=== PATIENT | female | born 1960 | race African-American/Black ===

== ENCOUNTER 2017-01-23 11:50 | Inpatient (IN) | payer OTHER ==
[~2017-01-23] VITALS: Ht 157.5 cm; Wt 104.3 kg
[~2017-01-23 11:50] MED LIST: ATIVAN; K-DUR PO; LASIX PO; LISINOPRIL PO
[2017-01-23] MEDS ORDERED: ALBUTEROL (0.083%) 2.5MG/3ML NEB HHN STA (11:57)
[2017-01-23] MEDS ORDERED: NITROGLYCERIN 0.4MG TABLET SL SL PRN (12:00)
[2017-01-23] MEDS ORDERED: ASPIRIN 81MG TABLET PO ONE (12:00)
[2017-01-23] MEDS ORDERED: FUROSEMIDE 40MG/4ML VIAL IV ONE (12:00)
[2017-01-23 12:27] LABS: BASOPHILS % 0.8 % (0.0-2.0); EOSINOPHILS % 2.4 % (0.0-5.0); HEMATOCRIT. 42.4 % (36.0-48.0); HEMOGLOBIN. 13.8 g/dL (12.0-16.0); LYMPHOCYTES % 37.3 % (20.0-50.0); MEAN CORPUSCULAR HEMOGLOBIN 25.6 pg (28.0-32.0); MEAN CORPUSCULAR VOLUME 78.9 fL (81.0-99.0); MEAN PLATELET VOLUME 8.7 fl (7.4-10.4); MONOCYTES % 5.9 % (2.0-8.0); NEUTROPHILS % 53.6 % (40.0-76.0); PLATELET 281 x1000/uL (130-400); RED BLOOD CELL COUNT 5.37 mill/uL (4.2-5.4); RED CELL DISTRIBUTION WIDTH 16.3 % (11.6-14.6)
[2017-01-23 12:35] LABS: PROTHROMBIN TIME 10.3 sec (9.4-11.6)
[2017-01-23 12:44] LABS: CARBON DIOXIDE 28 mEq/L (21-32); CHLORIDE 108 mEq/L (98-107); TROPONIN I < 0.02 ng/mL (0.00-0.04)
[2017-01-23] MEDS ORDERED: LORAZEPAM 2MG/ML CPJ IV ONE (12:45)
[2017-01-23 16:30] VITALS: BP 103/75
[2017-01-23 17:00] VITALS: BP 103/75
[2017-01-23] MEDS ORDERED: IPRATROPIUM/ALBUTEROL 0.5-3(2.5)MG/3ML NEB HHN PRN (17:15)
[2017-01-23 20:00] VITALS: BP 170/66
[2017-01-23] MEDS: FUROSEMIDE 20MG TABLET PO SCH (20:44)
[2017-01-23] MEDS: CARVEDILOL 3.125 MG TABLET PO SCH (20:45)
[2017-01-23] MEDS: LORAZEPAM 2MG/ML CPJ IV PRN (20:58)
[2017-01-24 04:00] VITALS: BP 145/60
[2017-01-24 08:00] VITALS: BP 123/69
[2017-01-24] MEDS: CARVEDILOL 3.125 MG TABLET PO SCH (08:33)
[2017-01-24] MEDS: FUROSEMIDE 20MG TABLET PO SCH (08:33)
[2017-01-24] MEDS: LORAZEPAM 2MG/ML CPJ IV PRN (08:34)
[2017-01-24] MEDS ORDERED: LISINOPRIL 2.5MG TABLET PO SCH (09:00)
[2017-01-24] MEDS ORDERED: ASPIRIN 325MG EC TABLET PO SCH (09:00)
[2017-01-24] MEDS ORDERED: ALPRAZOLAM 0.5 MG TABLET PO SCH (10:00)
[2017-01-24] MEDS ORDERED: DEXTROSE 50% WATER 50ML SYRINGE IV PRN (10:00)
[2017-01-24 10:57] LABS: HEMATOCRIT 39.9 % (36.0-48.0); MEAN CORPUSCULAR HEMOGLOBIN 25.7 pg (28.0-32.0); MEAN CORPUSCULAR VOLUME 78.6 fL (81.0-99.0); PLATELET 260 x1000/uL (130-400); RED BLOOD CELL COUNT 5.07 mill/uL (4.2-5.4); RED CELL DISTRIBUTION WIDTH 16.2 % (11.6-14.6)
[2017-01-24] MEDS ORDERED: NICOTINE 14MG PATCH TD SCH (11:00)
[2017-01-24 11:24] LABS: CARBON DIOXIDE 28 mEq/L (21-32); CHLORIDE 105 mEq/L (98-107)
[2017-01-24] MEDS: BLOOD SUGAR DIAGNOSTIC STRIP TEST SCH ×2 (11:58→17:34)
[2017-01-24] MEDS: INSULIN LISPRO 100 UNITS/ML SUBCUT SCH ×2 (11:58→17:15)
[2017-01-24 12:00] VITALS: BP 187/94
[2017-01-24] MEDS ORDERED: AZITHROMYCIN 500 MG in DEXT 5% WATER 250 ML IV SCH (12:00)
[2017-01-24 14:49] LABS: CLARITY URINE CLEAR (CLEAR); COLOR URINE YELLOW (YELLOW); GLUCOSE URINE NEGATIVE (NEGATIVE); KETONES URINE NEGATIVE (NEGATIVE); LEUKOCYTE ESTERASE URINE NEGATIVE (NEGATIVE); NITRITE URINE POSITIVE (NEGATIVE); OCCULT BLOOD URINE NEGATIVE (NEGATIVE); PH URINE 7.5 (4.5-8.0); PROTEIN URINE NEGATIVE (NEGATIVE); SPECIFIC GRAVITY URINE 1.011 (1.005-1.030); UROBILINOGEN URINE 0.2 E.U./dL (0.2-1.0)
[2017-01-24 15:22] LABS: *AMPHETAMINES SCREEN URINE NEGATIVE (NEGATIVE); *BARBITURATES SCREEN URINE NEGATIVE (NEGATIVE); *BENZODIAZEPINES SCREEN URINE NEGATIVE (NEGATIVE); *COCAINE SCREEN URINE PRESUMTIVE POSITIVE (NEGATIVE); CANNABINOID URINE SCREEN NEGATIVE (NEGATIVE); METHADONE URINE SCREEN NEGATIVE (NEGATIVE); OPIATES URINE SCREEN NEGATIVE (NEGATIVE); PHENCYCLIDINE URINE SCREEN NEGATIVE (NEGATIVE)
[2017-01-24 16:00] VITALS: BP 180/96
[2017-01-24] MEDS ORDERED: FUROSEMIDE 20MG TABLET PO SCH (21:00)
== END 2017-01-24 18:30 | disposition left against medical advice (07) | DRG 133 ==
LOC: ER 11:50 → 5WST 11:51 → ENRESERV 15:56 → CANRESERV 15:56
PROVIDERS: ADMIT Internal Medicine; ATTEND Internal Medicine
DX: J96.00 Acute respiratory failure, unspecified whether with hypoxia or hypercapnia (principal); I50.31 Acute diastolic (congestive) heart failure; J44.1 Chronic obstructive pulmonary disease with (acute) exacerbation; Z68.41 Body mass index [BMI] 40.0-44.9, adult; I11.0 Hypertensive heart disease with heart failure; E11.9 Type 2 diabetes mellitus without complications; E66.01 Morbid (severe) obesity due to excess calories; F17.210 Nicotine dependence, cigarettes, uncomplicated; F41.9 Anxiety disorder, unspecified; Z53.21 Procedure and treatment not carried out due to patient leaving prior to being seen by health care provider; H54.8 Legal blindness, as defined in USA; Z82.49 Family history of ischemic heart disease and other diseases of the circulatory system
CPT/HCPCS: 36415; 71010; 72100; 74000; 80048; 80053; 80305; 81001; 82962; 83036; 83880; 84484; 85025; 85027; 85610; 93005; 93306; 93970; 94640; 99285; J0456; J2060; J7030; J7050; J7060; J7611

== ENCOUNTER 2017-08-09 16:49 | Emergency (ER) | payer OTHER ==
[~2017-08-09] VITALS: Ht 170.2 cm; Wt 95.0 kg
[~2017-08-09 16:49] MED LIST changes: +AMLO10TA80 PO
[2017-08-09 16:56] VITALS: BP 163/85
[2017-08-09 17:55] LABS: BASOPHILS % 0.8 % (0.0-2.0); EOSINOPHILS % 2.6 % (0.0-5.0); HEMATOCRIT. 38.1 % (36.0-48.0); HEMOGLOBIN. 12.3 g/dL (12.0-16.0); LYMPHOCYTES % 37.5 % (20.0-50.0); MEAN CORPUSCULAR HEMOGLOBIN 25.4 pg (28.0-32.0); MEAN CORPUSCULAR VOLUME 78.5 fL (81.0-99.0); MEAN PLATELET VOLUME 8.4 fl (7.4-10.4); MONOCYTES % 7.7 % (2.0-8.0); NEUTROPHILS % 51.4 % (40.0-76.0); PLATELET 275 x1000/uL (130-400); RED BLOOD CELL COUNT 4.86 mill/uL (4.2-5.4)
[2017-08-09 18:00] LABS: CHLORIDE 109 mEq/L (98-107)
== END 2017-08-09 19:00 | disposition left against medical advice (07) ==
LOC: ER 17:03
DX: R07.2 Precordial pain (principal); F14.10 Cocaine abuse, uncomplicated; J45.909 Unspecified asthma, uncomplicated; I11.0 Hypertensive heart disease with heart failure; I50.9 Heart failure, unspecified
CPT/HCPCS: 36415; 71045; 80048; 83880; 84484; 85025; 85610; 93005; 99285

== ENCOUNTER 2018-05-15 05:55 | Emergency (ER) | payer OTHER ==
[~2018-05-15] VITALS: Ht 157.5 cm; Wt 105.0 kg
[2018-05-15] MEDS ORDERED: ACETAMINOPHEN 325MG TABLET PO ONE (06:45)
[2018-05-15] MEDS ORDERED: LORAZEPAM 1MG TABLET PO ONE (06:45)
[2018-05-15] MEDS ORDERED: FLUORESCEIN SODIUM 1MG/STRIP OP ONE (07:00)
[2018-05-15] MEDS ORDERED: TETRACAINE 0.5% OPHTH DROPS 4ML OP ONE (07:00)
[2018-05-15 09:23] VITALS: BP 137/87
== END 2018-05-15 10:06 | disposition home or self-care (01) ==
LOC: ER 05:55
DX: S05.02XD Injury of conjunctiva and corneal abrasion without foreign body, left eye, subsequent encounter (principal); S05.01XD Injury of conjunctiva and corneal abrasion without foreign body, right eye, subsequent encounter; H57.13 Ocular pain, bilateral; J45.909 Unspecified asthma, uncomplicated; I11.0 Hypertensive heart disease with heart failure; I50.9 Heart failure, unspecified; Z79.899 Other long term (current) drug therapy; X58.XXXD Exposure to other specified factors, subsequent encounter
CPT/HCPCS: 99284

== ENCOUNTER 2018-07-11 09:35 | Emergency (ER) | payer MEDICARE, OTHER ==
[~2018-07-11] VITALS: Ht 162.6 cm; Wt 62.0 kg
[2018-07-11] MEDS ORDERED: ALBUTEROL (0.083%) 2.5MG/3ML NEB HHN STA (10:47)
[2018-07-11] MEDS ORDERED: IPRATROPIUM BROMIDE (0.02%) 0.5MG/2.5ML NEB HHN STA (10:47)
[2018-07-11 11:31] LABS: BASOPHILS % 0.6 % (0.0-2.0); EOSINOPHILS % 0.8 % (0.0-5.0); HEMATOCRIT. 41.8 % (36.0-48.0); HEMOGLOBIN. 13.6 g/dL (12.0-16.0); LYMPHOCYTES % 14.8 % (20.0-50.0); MEAN CORPUSCULAR HEMOGLOBIN 26.5 pg (28.0-32.0); MEAN CORPUSCULAR VOLUME 81.5 fL (81.0-99.0); MEAN PLATELET VOLUME 8.6 fl (7.4-10.4); MONOCYTES % 10.4 % (2.0-8.0); NEUTROPHILS % 73.4 % (40.0-76.0); PLATELET 227 x1000/uL (130-400); RED BLOOD CELL COUNT 5.13 mill/uL (4.2-5.4); RED CELL DISTRIBUTION WIDTH 16.2 % (11.6-14.6)
[2018-07-11 11:36] LABS: CHLORIDE 105 mEq/L (98-107)
[2018-07-11 11:40] LABS: INR 1.1; PARTIAL THROMBOPLASTIN TIME 26.3 sec (23.4-31.0); PROTHROMBIN TIME 10.6 sec (9.1-11.1)
[2018-07-11] MEDS ORDERED: PREDNISONE 20MG TABLET PO ONE (12:15)
[2018-07-11 13:58] VITALS: BP 104/59
== END 2018-07-11 14:15 | disposition home or self-care (01) ==
LOC: ER 09:35
DX: J40 Bronchitis, not specified as acute or chronic (principal); R06.2 Wheezing; I11.0 Hypertensive heart disease with heart failure; I50.9 Heart failure, unspecified; E11.9 Type 2 diabetes mellitus without complications
CPT/HCPCS: 36415; 71045; 80053; 83880; 84484; 85025; 85610; 85730; 87804; 93005; 94640; 99284; J7512; J7611

== ENCOUNTER 2018-08-18 16:26 | Emergency (ER) | payer MEDICARE, OTHER ==
[~2018-08-18] VITALS: Ht 167.6 cm; Wt 110.0 kg
[2018-08-18 17:29] LABS: CHLORIDE 111 mEq/L (98-107)
[2018-08-18] MEDS ORDERED: ALBUTEROL (0.083%) 2.5MG/3ML NEB HHN STA (17:31)
[2018-08-18] MEDS ORDERED: IPRATROPIUM BROMIDE (0.02%) 0.5MG/2.5ML NEB HHN STA (17:31)
[2018-08-18 17:37] LABS: BASOPHILS % 0.5 % (0.0-2.0); EOSINOPHILS % 2.6 % (0.0-5.0); HEMATOCRIT. 38.5 % (36.0-48.0); HEMOGLOBIN. 12.6 g/dL (12.0-16.0); LYMPHOCYTES % 35.1 % (20.0-50.0); MEAN CORPUSCULAR HEMOGLOBIN 26.8 pg (28.0-32.0); MEAN CORPUSCULAR VOLUME 81.6 fL (81.0-99.0); MEAN PLATELET VOLUME 9.1 fl (7.4-10.4); MONOCYTES % 7.5 % (2.0-8.0); NEUTROPHILS % 54.3 % (40.0-76.0); PLATELET 264 x1000/uL (130-400); RED BLOOD CELL COUNT 4.71 mill/uL (4.2-5.4); RED CELL DISTRIBUTION WIDTH 16.2 % (11.6-14.6)
[2018-08-18 19:04] VITALS: BP 135/111
== END 2018-08-18 20:33 | disposition home or self-care (01) ==
LOC: ER 16:26
DX: J44.9 Chronic obstructive pulmonary disease, unspecified (principal); I11.0 Hypertensive heart disease with heart failure; I50.9 Heart failure, unspecified; E11.9 Type 2 diabetes mellitus without complications; R45.6 Violent behavior; Z79.899 Other long term (current) drug therapy
CPT/HCPCS: 36415; 71045; 80048; 83880; 84484; 85025; 93005; 94640; 99284; J7611

== ENCOUNTER 2018-10-28 16:17 | Inpatient (IN) | payer MEDICARE, OTHER ==
[~2018-10-28] VITALS: Ht 160 cm; Wt 113.4 kg
[2018-10-28] MEDS ORDERED: IPRATROPIUM BROMIDE (0.02%) 0.5MG/2.5ML NEB HHN STA (18:44)
[2018-10-28] MEDS ORDERED: ALBUTEROL (0.083%) 2.5MG/3ML NEB HHN STA (18:44)
[2018-10-28] MEDS ORDERED: METHYLPREDNISOLONE SOD SUCC 125 MG/2 ML VIAL IV STA (18:44)
[2018-10-28 19:02] LABS: BASOPHILS % 0.5 % (0.0-2.0); EOSINOPHILS % 2.8 % (0.0-5.0); HEMATOCRIT. 42.9 % (36.0-48.0); LYMPHOCYTES % 28.3 % (20.0-50.0); MEAN CORPUSCULAR HEMOGLOBIN 26.8 pg (28.0-32.0); MEAN CORPUSCULAR VOLUME 81.9 fL (81.0-99.0); MEAN PLATELET VOLUME 8.8 fl (7.4-10.4); NEUTROPHILS % 63.4 % (40.0-76.0); PLATELET 251 x1000/uL (130-400); RED BLOOD CELL COUNT 5.24 mill/uL (4.2-5.4); RED CELL DISTRIBUTION WIDTH 15.6 % (11.6-14.6)
[2018-10-28 19:07] LABS: CHLORIDE 109 mEq/L (98-107)
[2018-10-28 19:09] LABS: PROTHROMBIN TIME 9.9 sec (9.6-11.0)
[2018-10-28] MEDS ORDERED: METRONIDAZOLE 500 MG PREMIX 100 ML IV SCH (22:00)
[2018-10-28] MEDS ORDERED: LEVOFLOXACIN 500MG PREMIX 100 ML IV SCH (22:00)
[2018-10-28] MEDS ORDERED: GUAIFENESIN 200MG/10ML SUGAR FREE UDC PO PRN (22:00)
[2018-10-28] MEDS ORDERED: MORPHINE SULFATE 2 MG/ML CPJ (NOT FOR IM USE) IV PRN (22:00)
[2018-10-28] MEDS ORDERED: IPRATROPIUM/ALBUTEROL 0.5-3(2.5)MG/3ML NEB INH PRN (22:00)
[2018-10-28 22:25] VITALS: BP 146/97
[2018-10-28] MEDS ORDERED: LORA2TAB95 PO (22:47)
[2018-10-28] MEDS ORDERED: LISI-604 PO (22:48)
[2018-10-28] MEDS ORDERED: FURO-152 PO (22:48)
[2018-10-28] MEDS ORDERED: ALBU05 IH (22:50)
[2018-10-28 22:56] VITALS: BP 146/97
[2018-10-28] MEDS: CLONIDINE 0.1MG TABLET PO PRN (23:00)
[2018-10-28] MEDS: METRONIDAZOLE 500 MG PREMIX 100 ML IV SCH (23:49)
[2018-10-28] MEDS: DEXT 5%/0.45% NACL 1000ML 1,000 ML IV SCH (23:49)
[2018-10-29] MEDS ORDERED: DEXTROSE 50% WATER 50ML SYRINGE IV PRN (00:30)
[2018-10-29] MEDS: LEVOFLOXACIN 500MG PREMIX 100 ML IV SCH (01:26)
[2018-10-29] MEDS: BLOOD SUGAR DIAGNOSTIC STRIP TEST SCH ×4 (06:31→20:56)
[2018-10-29] MEDS: INSULIN LISPRO 100 UNITS/ML SUBCUT SCH ×4 (06:31→20:56)
[2018-10-29 06:54] LABS: CHLORIDE 111 mEq/L (98-107)
[2018-10-29 06:59] LABS: BASOPHILS % 0.1 % (0.0-2.0); EOSINOPHILS % 0.1 % (0.0-5.0); HEMATOCRIT. 42.2 % (36.0-48.0); HEMOGLOBIN. 13.8 g/dL (12.0-16.0); LYMPHOCYTES % 11.5 % (20.0-50.0); MEAN CORPUSCULAR HEMOGLOBIN 26.8 pg (28.0-32.0); MEAN CORPUSCULAR VOLUME 81.9 fL (81.0-99.0); MEAN PLATELET VOLUME 9.1 fl (7.4-10.4); MONOCYTES % 0.5 % (2.0-8.0); NEUTROPHILS % 87.8 % (40.0-76.0); PLATELET 259 x1000/uL (130-400); RED BLOOD CELL COUNT 5.15 mill/uL (4.2-5.4); RED CELL DISTRIBUTION WIDTH 15.5 % (11.6-14.6)
[2018-10-29] MEDS: LORAZEPAM 1MG TABLET PO PRN ×2 (07:03→18:09)
[2018-10-29] MEDS: CLONIDINE 0.1MG TABLET PO PRN (07:03)
[2018-10-29 08:00] VITALS: BP 202/100
[2018-10-29] MEDS: ONDANSETRON HCL 4MG/2ML INJ IV PRN (08:30)
[2018-10-29] MEDS: HYDRALAZINE HCL 50MG TABLET PO SCH ×3 (08:30→21:00)
[2018-10-29] MEDS ORDERED: HYDRALAZINE HCL 50MG TABLET PO NR (08:30)
[2018-10-29] MEDS: METRONIDAZOLE 500 MG PREMIX 100 ML IV SCH (08:58)
[2018-10-29 12:00] VITALS: BP 175/74
[2018-10-29] MEDS: NICOTINE 21MG PATCH TD SCH (12:33)
[2018-10-29] MEDS: ENOXAPARIN 40MG/0.4ML SYR SUBCUT SCH (12:33)
[2018-10-29] MEDS: LISINOPRIL 20MG TABLET PO SCH (12:33)
[2018-10-29] MEDS: AMLODIPINE 10MG TABLET PO SCH (12:33)
[2018-10-29 16:00] VITALS: BP 138/89
[2018-10-29] MEDS: DEXT 5%/0.45% NACL 1000ML 1,000 ML IV SCH (17:13)
[2018-10-29] MEDS ORDERED: BUDESONIDE 0.5MG/2ML NEB HHN SCH (18:00)
[2018-10-29 20:00] VITALS: BP 153/68
[2018-10-29] MEDS: IPRATROPIUM/ALBUTEROL 0.5-3(2.5)MG/3ML NEB HHN SCH (20:29)
[2018-10-29] MEDS: GUAIFENESIN 600MG ER TABLET PO SCH (20:56)
[2018-10-30] MEDS: LEVOFLOXACIN 500MG PREMIX 100 ML IV SCH (00:01)
[2018-10-30] MEDS: IPRATROPIUM/ALBUTEROL 0.5-3(2.5)MG/3ML NEB HHN SCH (02:00)
[2018-10-30 06:00] VITALS: BP 113/77
[2018-10-30] MEDS: BLOOD SUGAR DIAGNOSTIC STRIP TEST SCH ×2 (06:09→12:09)
[2018-10-30] MEDS: HYDRALAZINE HCL 50MG TABLET PO SCH ×2 (06:09→14:34)
[2018-10-30] MEDS: INSULIN LISPRO 100 UNITS/ML SUBCUT SCH ×2 (06:52→12:10)
[2018-10-30 08:00] VITALS: BP 152/75
[2018-10-30] MEDS: NICOTINE 21MG PATCH TD SCH (09:08)
[2018-10-30] MEDS: AMLODIPINE 10MG TABLET PO SCH (09:09)
[2018-10-30] MEDS: GUAIFENESIN 600MG ER TABLET PO SCH (09:09)
[2018-10-30] MEDS: LISINOPRIL 20MG TABLET PO SCH (09:09)
[2018-10-30] MEDS: ONDANSETRON HCL 4MG/2ML INJ IV PRN (09:16)
[2018-10-30] MEDS: DEXT 5%/0.45% NACL 1000ML 1,000 ML IV SCH (09:17)
[2018-10-30 12:00] VITALS: BP 154/82
[2018-10-30] MEDS: ENOXAPARIN 40MG/0.4ML SYR SUBCUT SCH (12:00)
[2018-10-30] MEDS: LORAZEPAM 1MG TABLET PO PRN (12:16)
[2018-10-30 16:00] VITALS: BP 121/90
[2018-11-18 07:12] LABS: BARBITURATE SCREEN Negative ug/mL (Cutoff:0.1); BENZODIAZEPINE SCREEN Negative ng/mL (Cutoff:20); OPIATES SCREEN Negative ng/mL (Cutoff:5); PHENCYCLIDINE SCREEN Negative ng/mL (Cutoff:8)
== END 2018-10-30 16:18 | disposition home or self-care (01) | DRG 189 ==
LOC: ER 16:17 → 5WST 20:34 → ENRESERV 21:01
PROVIDERS: ADMIT Hospitalist; ATTEND Hospitalist
DX: J96.00 Acute respiratory failure, unspecified whether with hypoxia or hypercapnia (principal); J44.1 Chronic obstructive pulmonary disease with (acute) exacerbation; E66.2 Morbid (severe) obesity with alveolar hypoventilation; I50.42 Chronic combined systolic (congestive) and diastolic (congestive) heart failure; Z68.41 Body mass index [BMI] 40.0-44.9, adult; I11.0 Hypertensive heart disease with heart failure; F17.210 Nicotine dependence, cigarettes, uncomplicated; Z91.14 Patient's other noncompliance with medication regimen; Z91.19 Patient's noncompliance with other medical treatment and regimen; Z71.6 Tobacco abuse counseling
CPT/HCPCS: 36415; 71045; 74176; 80307; 82962; 83605; 83880; 84484; 93005; 94640; 96374; 99285; J1650; J1815; J1956; J2405; J2930; J3490; J7611; J7620; J7626

== ENCOUNTER 2018-12-25 17:47 | Inpatient (IN) | payer MEDICARE, OTHER ==
[~2018-12-25] VITALS: Ht 162.6 cm; Wt 101.2 kg
[~2018-12-25 17:47] MED LIST changes: +ALBU05 IH; -ATIVAN; +FURO-152 PO; -K-DUR PO; -LASIX PO; +LISI-604 PO; -LISINOPRIL PO; +LORA2TAB95 PO
[2018-12-25] MEDS ORDERED: IPRATROPIUM BROMIDE (0.02%) 0.5MG/2.5ML NEB HHN STA (18:48)
[2018-12-25] MEDS ORDERED: METHYLPREDNISOLONE SOD SUCC 125 MG/2 ML VIAL IV STA (18:48)
[2018-12-25] MEDS ORDERED: ALBUTEROL (0.083%) 2.5MG/3ML NEB HHN STA (18:48)
[2018-12-25] MEDS ORDERED: DOXYCYCLINE HYCLATE 100 MG/VIAL IV ONE (19:00)
[2018-12-25] MEDS ORDERED: ASPIRIN 81MG TABLET PO ONE (19:00)
[2018-12-25] MEDS ORDERED: CEFTRIAXONE 1 G PREMIX 50 ML IV ONE (19:00)
[2018-12-25] MEDS ORDERED: FUROSEMIDE 40MG/4ML VIAL IV ONE (19:00)
[2018-12-25] MEDS ORDERED: SODIUM CHLORIDE 0.9% 1000ML BAG (SEPSIS BOLUS) IV ONE (19:00)
[2018-12-25] MEDS ORDERED: MAGNESIUM 2 G PREMIX 50 ML IV ONE (19:00)
[2018-12-25] MEDS: DOXYCYCLINE 100MG in DEXTROSE 5% WATER 100ML IV NR ×2 (19:00→22:14)
[2018-12-25 19:06] LABS: BASOPHILS % 0.9 % (0.0-2.0); EOSINOPHILS % 2.5 % (0.0-5.0); HEMOGLOBIN. 12.5 g/dL (12.0-16.0); LYMPHOCYTES % 38.7 % (20.0-50.0); MEAN CORPUSCULAR HEMOGLOBIN 26.7 pg (28.0-32.0); MEAN CORPUSCULAR VOLUME 81.1 fL (81.0-99.0); MEAN PLATELET VOLUME 9.5 fl (7.4-10.4); MONOCYTES % 5.3 % (2.0-8.0); NEUTROPHILS % 52.6 % (40.0-76.0); PLATELET 231 x1000/uL (130-400); RED BLOOD CELL COUNT 4.68 mill/uL (4.2-5.4); RED CELL DISTRIBUTION WIDTH 15.8 % (11.6-14.6)
[2018-12-25 19:07] LABS: CHLORIDE 112 mEq/L (98-107)
[2018-12-25 19:10] LABS: INR 0.9; PARTIAL THROMBOPLASTIN TIME 24.7 sec (23.4-31.0); PROTHROMBIN TIME 9.7 sec (9.6-11.0)
[2018-12-25 20:11] LABS: CLARITY URINE CLOUDY (CLEAR); COLOR URINE YELLOW (YELLOW); KETONES URINE NEGATIVE (NEGATIVE); LEUKOCYTE ESTERASE URINE 1+ (NEGATIVE); NITRITE URINE NEGATIVE (NEGATIVE); OCCULT BLOOD URINE NEGATIVE (NEGATIVE); PROTEIN URINE NEGATIVE (NEGATIVE); SPECIFIC GRAVITY URINE 1.003 (1.005-1.030); UROBILINOGEN URINE 0.2 E.U./dL (0.2-1.0)
[2018-12-25 23:44] VITALS: BP 183/67
[2018-12-26] VITALS: BP 183/67
[2018-12-26] MEDS ORDERED: DIPHENHYDRAMINE 50MG/ML VIAL IV PRN (00:30)
[2018-12-26] MEDS ORDERED: DOCUSATE SODIUM 100MG CAPSULE PO PRN (00:30)
[2018-12-26] MEDS ORDERED: MAGNESIUM/ALUMINUM HYDROXIDE/SIMETHICONE 30ML UDC PO PRN (00:30)
[2018-12-26] MEDS ORDERED: IPRATROPIUM/ALBUTEROL 0.5-3(2.5)MG/3ML NEB INH PRN (00:30)
[2018-12-26] MEDS ORDERED: NA PHOS,M-B/NA PHOS,DI-BA ENEMA 118ML PR PRN (00:30)
[2018-12-26] MEDS ORDERED: ACETAMINOPHEN 325MG TABLET PO PRN (00:30)
[2018-12-26] MEDS ORDERED: GUAIFENESIN 200MG/10ML SUGAR FREE UDC PO PRN (00:30)
[2018-12-26] MEDS ORDERED: ONDANSETRON HCL 4MG/2ML INJ IV PRN (00:30)
[2018-12-26] MEDS ORDERED: DEXTROSE 50% WATER 50ML SYRINGE IV PRN (00:30)
[2018-12-26] MEDS ORDERED: LEVOFLOXACIN 500MG PREMIX 100 ML IV SCH (00:45)
[2018-12-26] MEDS: HYDRALAZINE 20MG/ML VIAL IV PRN ×2 (01:22→23:41)
[2018-12-26] MEDS: HYDROCODONE/ACETAMINOPHEN 10/325MG TABLET PO PRN ×2 (02:55→23:39)
[2018-12-26 04:00] VITALS: BP 160/82
[2018-12-26] MEDS: SODIUM CHLORIDE 0.9% INJ 3ML FLUSH IVF SCH ×3 (06:30→21:19)
[2018-12-26] MEDS: BLOOD SUGAR DIAGNOSTIC STRIP TEST SCH ×4 (06:30→21:20)
[2018-12-26] MEDS: INSULIN LISPRO 100 UNITS/ML SUBCUT SCH ×4 (06:33→21:00)
[2018-12-26 08:00] VITALS: BP 142/69
[2018-12-26 09:17] LABS: CREATINE KINASE 102 IU/L (26-192)
[2018-12-26 09:19] LABS: CREATINE KINASE MB FRACTION 1.5 ng/mL (0.5-3.6)
[2018-12-26] MEDS: ENOXAPARIN 30MG/0.3ML SYR SUBCUT SCH ×3 (09:22→21:20)
[2018-12-26] MEDS: ASPIRIN 81MG EC TABLET PO SCH (09:22)
[2018-12-26] MEDS: FUROSEMIDE 40MG/4ML VIAL IV SCH (09:22)
[2018-12-26] MEDS: LEVOFLOXACIN 500MG PREMIX 100 ML IV SCH (09:22)
[2018-12-26] MEDS: LORAZEPAM 2MG/ML CPJ IV PRN ×2 (09:23→21:19)
[2018-12-26 12:00] VITALS: BP 139/69
[2018-12-26] MEDS: NICOTINE 14MG PATCH TD SCH (12:46)
[2018-12-26 13:07] LABS: *AMPHETAMINES SCREEN URINE NEGATIVE (NEGATIVE); *BARBITURATES SCREEN URINE NEGATIVE (NEGATIVE); *BENZODIAZEPINES SCREEN URINE NEGATIVE (NEGATIVE); *COCAINE SCREEN URINE PRESUMTIVE POSITIVE (NEGATIVE); METHADONE URINE SCREEN NEGATIVE (NEGATIVE)
[2018-12-26 13:08] LABS: CANNABINOID URINE SCREEN NEGATIVE (NEGATIVE); OPIATES URINE SCREEN PRESUMTIVE POSITIVE (NEGATIVE); PHENCYCLIDINE URINE SCREEN NEGATIVE (NEGATIVE)
[2018-12-26] MEDS: BUDESONIDE 0.5MG/2ML NEB HHN SCH (15:39)
[2018-12-26 16:00] VITALS: BP 198/89
[2018-12-26 17:15] LABS: CREATINE KINASE 85 IU/L (26-192)
[2018-12-26 17:18] LABS: CREATINE KINASE MB FRACTION 1.1 ng/mL (0.5-3.6)
[2018-12-26] MEDS: CLONIDINE 0.1MG TABLET PO PRN (17:23)
[2018-12-26 20:00] VITALS: BP 133/58
[2018-12-26] MEDS: IPRATROPIUM/ALBUTEROL 0.5-3(2.5)MG/3ML NEB HHN SCH (21:25)
[2018-12-27] VITALS (8 sets, daily range): BP systolic 124–186; BP diastolic 52–144
[2018-12-27] MEDS: IPRATROPIUM/ALBUTEROL 0.5-3(2.5)MG/3ML NEB HHN SCH ×4 (02:16→19:42)
[2018-12-27] MEDS: MORPHINE SULFATE 2 MG/ML CPJ (NOT FOR IM USE) IV PRN ×2 (04:16→09:28)
[2018-12-27] MEDS: BLOOD SUGAR DIAGNOSTIC STRIP TEST SCH ×4 (05:58→20:32)
[2018-12-27] MEDS: SODIUM CHLORIDE 0.9% INJ 3ML FLUSH IVF SCH ×3 (06:00→20:32)
[2018-12-27] MEDS: INSULIN LISPRO 100 UNITS/ML SUBCUT SCH ×4 (06:18→21:00)
[2018-12-27] MEDS: BUDESONIDE 0.5MG/2ML NEB HHN SCH ×2 (07:10→19:42)
[2018-12-27] MEDS: ENOXAPARIN 30MG/0.3ML SYR SUBCUT SCH ×2 (09:00→20:32)
[2018-12-27] MEDS: LEVOFLOXACIN 500MG PREMIX 100 ML IV SCH (09:06)
[2018-12-27] MEDS: ASPIRIN 81MG EC TABLET PO SCH (09:06)
[2018-12-27] MEDS: NICOTINE 14MG PATCH TD SCH (09:06)
[2018-12-27 09:09] LABS: BASOPHILS % 0.3 % (0.0-2.0); EOSINOPHILS % 0.6 % (0.0-5.0); HEMATOCRIT. 41.3 % (36.0-48.0); HEMOGLOBIN. 13.6 g/dL (12.0-16.0); MEAN CORPUSCULAR HEMOGLOBIN 26.6 pg (28.0-32.0); MEAN CORPUSCULAR VOLUME 80.9 fL (81.0-99.0); MEAN PLATELET VOLUME 8.9 fl (7.4-10.4); MONOCYTES % 5.1 % (2.0-8.0); PLATELET 251 x1000/uL (130-400); RED CELL DISTRIBUTION WIDTH 16.1 % (11.6-14.6)
[2018-12-27 10:04] LABS: CHLORIDE 106 mEq/L (98-107)
[2018-12-27 10:14] LABS: T4 FREE 0.85 ng/dL (0.76-1.46)
[2018-12-27] MEDS: FUROSEMIDE 40MG/4ML VIAL IV SCH (11:43)
[2018-12-27] MEDS: HYDRALAZINE 20MG/ML VIAL IV PRN ×2 (11:56→20:48)
[2018-12-27] MEDS: HYDROCODONE/ACETAMINOPHEN 10/325MG TABLET PO PRN (11:56)
[2018-12-27] MEDS: CLONIDINE 0.1MG TABLET PO PRN (12:50)
[2018-12-27] MEDS: GUAIFENESIN 600MG ER TABLET PO SCH (20:31)
[2018-12-27] MEDS: LORAZEPAM 2MG/ML CPJ IV PRN (20:31)
[2018-12-28] MEDS: IPRATROPIUM/ALBUTEROL 0.5-3(2.5)MG/3ML NEB HHN SCH ×2 (01:15→10:29)
[2018-12-28] MEDS: INSULIN LISPRO 100 UNITS/ML SUBCUT SCH ×2 (06:32→12:15)
[2018-12-28] MEDS: BLOOD SUGAR DIAGNOSTIC STRIP TEST SCH ×2 (06:32→12:37)
[2018-12-28] MEDS: SODIUM CHLORIDE 0.9% INJ 3ML FLUSH IVF SCH ×2 (07:16→12:47)
[2018-12-28 08:00] VITALS: BP 176/73
[2018-12-28] MEDS: ENOXAPARIN 30MG/0.3ML SYR SUBCUT SCH (09:00)
[2018-12-28] MEDS: LEVOFLOXACIN 500MG PREMIX 100 ML IV SCH (09:38)
[2018-12-28] MEDS: ASPIRIN 81MG EC TABLET PO SCH (09:39)
[2018-12-28] MEDS: HYDRALAZINE 20MG/ML VIAL IV PRN (09:39)
[2018-12-28] MEDS: NICOTINE 14MG PATCH TD SCH (09:40)
[2018-12-28] MEDS: HYDROCODONE/ACETAMINOPHEN 10/325MG TABLET PO PRN (09:40)
[2018-12-28] MEDS: GUAIFENESIN 600MG ER TABLET PO SCH (10:00)
[2018-12-28] MEDS: BUDESONIDE 0.5MG/2ML NEB HHN SCH (10:29)
[2018-12-28 12:00] VITALS: BP 149/71
[2018-12-28] MEDS: FUROSEMIDE 40MG/4ML VIAL IV SCH (12:47)
[2018-12-28] MEDS ORDERED: PREDNISONE 20MG TABLET PO SCH (13:00)
[2018-12-28 14:18] VITALS: BP 149/71
[2018-12-28] MEDS ORDERED: GUAIFENESIN 600MG ER TABLET PO SCH (21:00)
== END 2018-12-28 14:15 | disposition home or self-care (01) | DRG 917 ==
LOC: ER 17:47 → 5WST 20:47 → EDBEDREQTM 20:59 → EDBEDREQ 20:59 → CANRESERV 21:08 → EDRESERV 21:08 → ENRESERV 21:08
PROVIDERS: ADMIT Internal Medicine; ATTEND Internal Medicine
DX: T40.5X1A Poisoning by cocaine, accidental (unintentional), initial encounter (principal); J96.00 Acute respiratory failure, unspecified whether with hypoxia or hypercapnia; I50.41 Acute combined systolic (congestive) and diastolic (congestive) heart failure; J44.1 Chronic obstructive pulmonary disease with (acute) exacerbation; R65.10 Systemic inflammatory response syndrome (SIRS) of non-infectious origin without acute organ dysfunction; J68.0 Bronchitis and pneumonitis due to chemicals, gases, fumes and vapors; E11.9 Type 2 diabetes mellitus without complications; I11.0 Hypertensive heart disease with heart failure; E78.5 Hyperlipidemia, unspecified; F17.210 Nicotine dependence, cigarettes, uncomplicated; F41.9 Anxiety disorder, unspecified; Y92.89 Other specified places as the place of occurrence of the external cause; Z82.49 Family history of ischemic heart disease and other diseases of the circulatory system; Z98.891 History of uterine scar from previous surgery; Z71.6 Tobacco abuse counseling
CPT/HCPCS: 36415; 71045; 80061; 80305; 81003; 82550; 82553; 82962; 83036; 83605; 83880; 84439; 84443; 84484; 85379; 93005; 93306; 94640; 96365; 99285; J0360; J0696; J1200; J1650; J1815; J1940; J1956; J2060; J2270; J2405; J2930; J3475; J3490; J7060; J7512; J7611; J7620; J7626

== ENCOUNTER 2019-01-03 20:22 | Inpatient (IN) | payer MEDICARE, OTHER ==
[~2019-01-03] VITALS: Ht 162.6 cm; Wt 107.5 kg
[2019-01-03 23:12] LABS: BASOPHILS % 0.6 % (0.0-2.0); HEMATOCRIT. 36.2 % (36.0-48.0); HEMOGLOBIN. 11.9 g/dL (12.0-16.0); LYMPHOCYTES % 37.3 % (20.0-50.0); MEAN CORPUSCULAR HEMOGLOBIN 26.8 pg (28.0-32.0); MEAN CORPUSCULAR VOLUME 81.2 fL (81.0-99.0); MEAN PLATELET VOLUME 8.7 fl (7.4-10.4); MONOCYTES % 8.7 % (2.0-8.0); NEUTROPHILS % 51.4 % (40.0-76.0); PLATELET 250 x1000/uL (130-400); RED BLOOD CELL COUNT 4.45 mill/uL (4.2-5.4); RED CELL DISTRIBUTION WIDTH 15.4 % (11.6-14.6)
[2019-01-03 23:17] LABS: CHLORIDE 112 mEq/L (98-107)
[2019-01-04] MEDS ORDERED: IPRATROPIUM BROMIDE (0.02%) 0.5MG/2.5ML NEB HHN STA (00:58)
[2019-01-04] MEDS ORDERED: ALBUTEROL (0.083%) 2.5MG/3ML NEB HHN STA (00:58)
[2019-01-04] MEDS ORDERED: METHYLPREDNISOLONE SOD SUCC 125 MG/2 ML VIAL IV STA (00:58)
[2019-01-04] MEDS ORDERED: SODIUM CHLORIDE 0.9% 1000ML BAG (SEPSIS BOLUS) IV ONE (01:00)
[2019-01-04] MEDS ORDERED: LEVOFLOXACIN 750MG PREMIX 150 ML IV ONE (01:00)
[2019-01-04] MEDS ORDERED: LORAZEPAM 1MG TABLET PO ONE (01:45)
[2019-01-04] MEDS ORDERED: DIPHENHYDRAMINE 50MG/ML VIAL IV PRN (04:00)
[2019-01-04] MEDS ORDERED: ACETAMINOPHEN 325MG TABLET PO PRN (08:30)
[2019-01-04] MEDS ORDERED: GUAIFENESIN-DM 200MG-20MG/10ML UDC PO PRN (08:30)
[2019-01-04] MEDS ORDERED: IPRATROPIUM/ALBUTEROL 0.5-3(2.5)MG/3ML NEB HHN PRN (08:30)
[2019-01-04] MEDS ORDERED: ONDANSETRON HCL 4MG/2ML INJ IV PRN (08:30)
[2019-01-04] MEDS ORDERED: METHYLPREDNISOLONE SOD SUCC 40 MG/ML VIAL IV SCH (09:00)
[2019-01-04 10:29] VITALS: BP 136/67
[2019-01-04 11:42] VITALS: BP 156/69
[2019-01-04 11:56] LABS: CLARITY URINE CLEAR (CLEAR); COLOR URINE YELLOW (YELLOW); KETONES URINE NEGATIVE (NEGATIVE); LEUKOCYTE ESTERASE URINE NEGATIVE (NEGATIVE); NITRITE URINE NEGATIVE (NEGATIVE); OCCULT BLOOD URINE NEGATIVE (NEGATIVE); PH URINE 7.5 (4.5-8.0); PROTEIN URINE NEGATIVE (NEGATIVE); SPECIFIC GRAVITY URINE 1.016 (1.005-1.030); UROBILINOGEN URINE 0.2 E.U./dL (0.2-1.0)
[2019-01-04] MEDS: GUAIFENESIN 600MG ER TABLET PO SCH ×2 (12:07→21:02)
[2019-01-04] MEDS: AZITHROMYCIN 500 MG TABLET PO SCH (12:07)
[2019-01-04 12:32] LABS: CANNABINOID URINE SCREEN NEGATIVE (NEGATIVE); METHADONE URINE SCREEN NEGATIVE (NEGATIVE); OPIATES URINE SCREEN NEGATIVE (NEGATIVE); PHENCYCLIDINE URINE SCREEN NEGATIVE (NEGATIVE)
[2019-01-04 12:33] LABS: *AMPHETAMINES SCREEN URINE NEGATIVE (NEGATIVE); *BARBITURATES SCREEN URINE NEGATIVE (NEGATIVE); *BENZODIAZEPINES SCREEN URINE NEGATIVE (NEGATIVE); *COCAINE SCREEN URINE PRESUMTIVE POSITIVE (NEGATIVE)
[2019-01-04] MEDS: IPRATROPIUM/ALBUTEROL 0.5-3(2.5)MG/3ML NEB HHN SCH ×3 (13:15→21:10)
[2019-01-04 15:54] VITALS: BP 239/107
[2019-01-04 16:00] VITALS: BP 161/73
[2019-01-04] MEDS: ENOXAPARIN 30MG/0.3ML SYR SUBCUT SCH ×2 (17:43→18:00)
[2019-01-04] MEDS: NICOTINE 21MG PATCH TD SCH (17:44)
[2019-01-04 20:36] VITALS: BP 141/64
[2019-01-04] MEDS: METHYLPREDNISOLONE SOD SUCC 40 MG/ML VIAL IV SCH (21:01)
[2019-01-04] MEDS: AMLODIPINE 5MG TABLET PO SCH (21:02)
[2019-01-04] MEDS: DIPHENHYDRAMINE 25MG CAPSULE PO PRN (21:02)
[2019-01-05 04:00] VITALS: BP 158/82
[2019-01-05] MEDS: IPRATROPIUM/ALBUTEROL 0.5-3(2.5)MG/3ML NEB HHN SCH ×4 (04:30→16:38)
[2019-01-05] MEDS: METHYLPREDNISOLONE SOD SUCC 40 MG/ML VIAL IV SCH ×2 (04:57→12:00)
[2019-01-05] MEDS: DIPHENHYDRAMINE 25MG CAPSULE PO PRN ×2 (04:58→14:07)
[2019-01-05] MEDS: ENOXAPARIN 30MG/0.3ML SYR SUBCUT SCH ×2 (04:58→17:57)
[2019-01-05 06:45] LABS: BASOPHILS % 0.3 % (0.0-2.0); HEMATOCRIT. 40.8 % (36.0-48.0); HEMOGLOBIN. 13.2 g/dL (12.0-16.0); MEAN CORPUSCULAR HEMOGLOBIN 26.4 pg (28.0-32.0); MEAN CORPUSCULAR VOLUME 81.4 fL (81.0-99.0); MEAN PLATELET VOLUME 9.3 fl (7.4-10.4); MONOCYTES % 0.6 % (2.0-8.0); NEUTROPHILS % 86.1 % (40.0-76.0); PLATELET 281 x1000/uL (130-400); RED BLOOD CELL COUNT 5.01 mill/uL (4.2-5.4)
[2019-01-05 08:00] VITALS: BP 178/84
[2019-01-05] MEDS: GUAIFENESIN 600MG ER TABLET PO SCH (08:41)
[2019-01-05] MEDS: NICOTINE 21MG PATCH TD SCH (08:42)
[2019-01-05] MEDS: AMLODIPINE 5MG TABLET PO SCH (08:42)
[2019-01-05] MEDS: AZITHROMYCIN 500 MG TABLET PO SCH (08:42)
[2019-01-05 12:00] VITALS: BP 163/70
[2019-01-05] MEDS ORDERED: LOSARTAN POTASSIUM 100 MG TABLET PO SCH (12:56)
[2019-01-05] MEDS: DOCUSATE SODIUM 250MG CAPSULE PO SCH ×2 (13:29→17:00)
[2019-01-05] MEDS ORDERED: SORBITOL 70% SOLN 30ML PO NR (14:00)
[2019-01-05 17:51] VITALS: BP 131/63
[2019-01-05] MEDS ORDERED: HYDRALAZINE HCL 50MG TABLET PO SCH (21:00)
[2019-01-06] MEDS ORDERED: PREDNISONE 20MG TABLET PO SCH (09:00)
== END 2019-01-05 18:10 | disposition home or self-care (01) | DRG 189 ==
LOC: ER 20:22 → 6WST 01-04 01:53 → ENRESERV 01-04 07:06
PROVIDERS: ADMIT Internal Medicine; ATTEND Internal Medicine
DX: J96.00 Acute respiratory failure, unspecified whether with hypoxia or hypercapnia (principal); J44.1 Chronic obstructive pulmonary disease with (acute) exacerbation; I50.32 Chronic diastolic (congestive) heart failure; E44.0 Moderate protein-calorie malnutrition; N17.9 Acute kidney failure, unspecified; Z68.41 Body mass index [BMI] 40.0-44.9, adult; I11.0 Hypertensive heart disease with heart failure; E87.8 Other disorders of electrolyte and fluid balance, not elsewhere classified; F17.210 Nicotine dependence, cigarettes, uncomplicated; E66.9 Obesity, unspecified; E78.5 Hyperlipidemia, unspecified; D72.829 Elevated white blood cell count, unspecified; T38.0X5A Adverse effect of glucocorticoids and synthetic analogues, initial encounter; F14.90 Cocaine use, unspecified, uncomplicated; Z82.49 Family history of ischemic heart disease and other diseases of the circulatory system; Y92.89 Other specified places as the place of occurrence of the external cause; Z71.3 Dietary counseling and surveillance; Z71.51 Drug abuse counseling and surveillance of drug abuser; Z71.6 Tobacco abuse counseling
CPT/HCPCS: 36415; 71045; 80048; 80305; 81003; 83605; 83880; 84145; 84484; 93005; 93970; 96365; 96366; 99285; J1200; J1650; J1956; J2920; J7030; J7611; J7620; Q0163

== ENCOUNTER 2019-01-31 10:49 | Emergency (ER) | payer MEDICARE, MEDICAID ==
[~2019-01-31] VITALS: Ht 162.6 cm; Wt 100.0 kg
[2019-01-31] MEDS ORDERED: ACETAMINOPHEN 325MG TABLET PO ONE (11:45)
[2019-01-31] MEDS ORDERED: AMLODIPINE 10MG TABLET PO ONE (11:45)
[2019-01-31 12:24] LABS: CLARITY URINE CLOUDY (CLEAR); COLOR URINE ORANGE (YELLOW); KETONES URINE NEGATIVE (NEGATIVE); LEUKOCYTE ESTERASE URINE 2+ (NEGATIVE); NITRITE URINE NEGATIVE (NEGATIVE); OCCULT BLOOD URINE 3+ (NEGATIVE); PROTEIN URINE TRACE (NEGATIVE); SPECIFIC GRAVITY URINE 1.011 (1.005-1.030)
[2019-01-31 12:58] LABS: HEMATOCRIT 41.6 % (36.0-48.0); HEMOGLOBIN 13.6 g/dL (12.0-16.0); MEAN CORPUSCULAR HEMOGLOBIN 26.6 pg (28.0-32.0); MEAN CORPUSCULAR VOLUME 81.4 fL (81.0-99.0); PLATELET 298 x1000/uL (130-400); RED BLOOD CELL COUNT 5.11 mill/uL (4.2-5.4); RED CELL DISTRIBUTION WIDTH 15.7 % (11.6-14.6)
[2019-01-31 13:06] LABS: CHLORIDE 107 mEq/L (98-107)
[2019-01-31] MEDS ORDERED: CEPHALEXIN 250MG CAPSULE PO ONE (13:45)
[2019-01-31 14:02] VITALS: BP 160/64
== END 2019-01-31 14:30 | disposition home or self-care (01) ==
LOC: ER 10:49
DX: N39.0 Urinary tract infection, site not specified (principal); N93.8 Other specified abnormal uterine and vaginal bleeding; I11.0 Hypertensive heart disease with heart failure; I50.9 Heart failure, unspecified; E11.9 Type 2 diabetes mellitus without complications; J44.9 Chronic obstructive pulmonary disease, unspecified; F17.200 Nicotine dependence, unspecified, uncomplicated; Z79.899 Other long term (current) drug therapy
CPT/HCPCS: 36415; 81003; 85027; 87077; 87186; 99284

== ENCOUNTER 2019-03-23 04:49 | Inpatient (IN) | payer MEDICARE, OTHER ==
[~2019-03-23] VITALS: Ht 165.1 cm; Wt 105.4 kg
[2019-03-23] MEDS: IPRATROPIUM/ALBUTEROL 0.5-3(2.5)MG/3ML NEB NEB SCH (02:51)
[2019-03-23 05:42] LABS: BASOPHILS % 0.7 % (0.0-2.0); EOSINOPHILS % 1.7 % (0.0-5.0); HEMATOCRIT. 42.7 % (36.0-48.0); LYMPHOCYTES % 24.3 % (20.0-50.0); MEAN CORPUSCULAR HEMOGLOBIN 26.6 pg (28.0-32.0); MEAN CORPUSCULAR VOLUME 81.3 fL (81.0-99.0); MEAN PLATELET VOLUME 8.6 fl (7.4-10.4); MONOCYTES % 6.4 % (2.0-8.0); NEUTROPHILS % 66.9 % (40.0-76.0); PLATELET 269 x1000/uL (130-400); RED BLOOD CELL COUNT 5.26 mill/uL (4.2-5.4); RED CELL DISTRIBUTION WIDTH 15.8 % (11.6-14.6)
[2019-03-23 05:52] LABS: CHLORIDE 108 mEq/L (98-107)
[2019-03-23] MEDS ORDERED: ASPIRIN 81MG TABLET PO ONE (06:45)
[2019-03-23] MEDS ORDERED: FUROSEMIDE 40MG/4ML VIAL IVP ONE (06:45)
[2019-03-23] MEDS ORDERED: IPRATROPIUM/ALBUTEROL 0.5-3(2.5)MG/3ML NEB HHN ONE (06:45)
[2019-03-23] MEDS ORDERED: DOCUSATE SODIUM 100MG CAPSULE PO PRN (11:15)
[2019-03-23] MEDS ORDERED: HYDROCODONE/ACETAMINOPHEN 5/325MG TABLET PO PRN (11:15)
[2019-03-23] MEDS ORDERED: MAGNESIUM/ALUMINUM HYDROXIDE/SIMETHICONE 30ML UDC PO PRN (11:15)
[2019-03-23] MEDS ORDERED: IPRATROPIUM/ALBUTEROL 0.5-3(2.5)MG/3ML NEB NEB PRN (11:15)
[2019-03-23] MEDS ORDERED: ACETAMINOPHEN 325MG TABLET PO PRN (11:15)
[2019-03-23] MEDS ORDERED: ONDANSETRON HCL 4MG/2ML INJ IV PRN (11:15)
[2019-03-23] MEDS ORDERED: HYDRALAZINE 20MG/ML VIAL IV SCH (11:15)
[2019-03-23] MEDS ORDERED: GUAIFENESIN 200MG/10ML SUGAR FREE UDC PO PRN (11:15)
[2019-03-23] MEDS: METHYLPREDNISOLONE SOD SUCC 125 MG/2 ML VIAL IV SCH ×2 (15:00→21:00)
[2019-03-23 16:20] VITALS: BP 146/60
[2019-03-23] MEDS: LISINOPRIL 5MG TABLET PO SCH (17:34)
[2019-03-23] MEDS: LEVOFLOXACIN 500MG PREMIX 100 ML IV SCH (17:34)
[2019-03-23 20:00] VITALS: BP 148/82
[2019-03-23] MEDS: LORAZEPAM 2MG/ML CPJ IV PRN (20:38)
[2019-03-23] MEDS: ENOXAPARIN 30MG/0.3ML SYR SUBCUT SCH (21:00)
[2019-03-24 00:54] VITALS: BP 178/68
[2019-03-24] MEDS: CLONIDINE 0.1MG TABLET PO PRN (00:55)
[2019-03-24] MEDS: LORAZEPAM 2MG/ML CPJ IV PRN ×4 (01:13→22:01)
[2019-03-24] MEDS: METHYLPREDNISOLONE SOD SUCC 125 MG/2 ML VIAL IV SCH ×4 (03:00→21:00)
[2019-03-24 04:00] VITALS: BP 148/86
[2019-03-24 06:12] LABS: BASOPHILS % 0.9 % (0.0-2.0); CHLORIDE 109 mEq/L (98-107); HEMOGLOBIN. 13.6 g/dL (12.0-16.0); LYMPHOCYTES % 38.3 % (20.0-50.0); MEAN CORPUSCULAR HEMOGLOBIN 26.5 pg (28.0-32.0); MEAN PLATELET VOLUME 8.8 fl (7.4-10.4); MONOCYTES % 7.8 % (2.0-8.0); PLATELET 214 x1000/uL (130-400); RED BLOOD CELL COUNT 5.11 mill/uL (4.2-5.4); RED CELL DISTRIBUTION WIDTH 16.2 % (11.6-14.6)
[2019-03-24 06:22] LABS: HDL CHOLESTEROL 53 mg/dL (40-59)
[2019-03-24 06:23] LABS: LDL CHOLESTEROL 103 mg/dL (5-100)
[2019-03-24 08:00] VITALS: BP 115/66
[2019-03-24] MEDS: FUROSEMIDE 40MG/4ML VIAL IV SCH (08:58)
[2019-03-24] MEDS: ENOXAPARIN 30MG/0.3ML SYR SUBCUT SCH ×2 (08:59→21:00)
[2019-03-24] MEDS: LISINOPRIL 5MG TABLET PO SCH (09:19)
[2019-03-24] MEDS: IPRATROPIUM/ALBUTEROL 0.5-3(2.5)MG/3ML NEB NEB SCH ×3 (09:28→20:06)
[2019-03-24 12:00] VITALS: BP 132/54
[2019-03-24 16:00] VITALS: BP 118/78
[2019-03-24] MEDS: LEVOFLOXACIN 500MG PREMIX 100 ML IV SCH (18:51)
[2019-03-24 19:11] LABS: CLARITY URINE CLEAR (CLEAR); COLOR URINE YELLOW (YELLOW); KETONES URINE NEGATIVE (NEGATIVE); LEUKOCYTE ESTERASE URINE NEGATIVE (NEGATIVE); NITRITE URINE NEGATIVE (NEGATIVE); OCCULT BLOOD URINE NEGATIVE (NEGATIVE); PH URINE 5.5 (4.5-8.0); PROTEIN URINE NEGATIVE (NEGATIVE); SPECIFIC GRAVITY URINE 1.009 (1.005-1.030); UROBILINOGEN URINE 0.2 E.U./dL (0.2-1.0)
[2019-03-24 20:00] VITALS: BP 122/52
[2019-03-25 00:50] VITALS: BP 99/37
[2019-03-25] MEDS: IPRATROPIUM/ALBUTEROL 0.5-3(2.5)MG/3ML NEB NEB SCH ×5 (02:06→21:14)
[2019-03-25] MEDS: LORAZEPAM 2MG/ML CPJ IV PRN ×4 (02:17→23:14)
[2019-03-25] MEDS: METHYLPREDNISOLONE SOD SUCC 125 MG/2 ML VIAL IV SCH ×4 (03:00→21:00)
[2019-03-25 08:00] VITALS: BP 168/74
[2019-03-25] MEDS: ENOXAPARIN 30MG/0.3ML SYR SUBCUT SCH ×2 (08:45→21:00)
[2019-03-25] MEDS: LISINOPRIL 5MG TABLET PO SCH (08:45)
[2019-03-25] MEDS: FUROSEMIDE 40MG/4ML VIAL IV SCH (08:45)
[2019-03-25] MEDS ORDERED: LEVOFLOXACIN 500MG TABLET PO SCH (11:00)
[2019-03-25 12:00] VITALS: BP 109/73
[2019-03-25 16:00] VITALS: BP 172/98
[2019-03-25 18:00] VITALS: BP 127/50
[2019-03-25] MEDS: CLONIDINE 0.1MG TABLET PO PRN (18:19)
[2019-03-25 20:00] VITALS: BP 138/63
[2019-03-26] MEDS: METHYLPREDNISOLONE SOD SUCC 125 MG/2 ML VIAL IV SCH ×3 (02:24→09:46)
[2019-03-26 08:00] VITALS: BP 161/69
[2019-03-26] MEDS: ENOXAPARIN 30MG/0.3ML SYR SUBCUT SCH ×2 (09:00→09:46)
[2019-03-26] MEDS: IPRATROPIUM/ALBUTEROL 0.5-3(2.5)MG/3ML NEB NEB SCH (09:45)
[2019-03-26] MEDS: FUROSEMIDE 40MG/4ML VIAL IV SCH (09:46)
[2019-03-26] MEDS: LORAZEPAM 2MG/ML CPJ IV PRN (09:46)
[2019-03-26] MEDS: LISINOPRIL 5MG TABLET PO SCH (09:47)
== END 2019-03-26 11:55 | disposition home or self-care (01) | DRG 190 ==
LOC: ER 04:49 → 6WST 08:13 → ENRESERV 14:18
PROVIDERS: ADMIT Hospitalist; ATTEND Hospitalist
DX: J44.1 Chronic obstructive pulmonary disease with (acute) exacerbation (principal); I50.33 Acute on chronic diastolic (congestive) heart failure; I11.0 Hypertensive heart disease with heart failure; F14.10 Cocaine abuse, uncomplicated; E11.9 Type 2 diabetes mellitus without complications; F17.210 Nicotine dependence, cigarettes, uncomplicated; M54.5 Low back pain; F41.9 Anxiety disorder, unspecified; F10.20 Alcohol dependence, uncomplicated; K30 Functional dyspepsia; K59.00 Constipation, unspecified; Z71.51 Drug abuse counseling and surveillance of drug abuser; Z79.899 Other long term (current) drug therapy; Z71.6 Tobacco abuse counseling; Z82.49 Family history of ischemic heart disease and other diseases of the circulatory system; Z91.19 Patient's noncompliance with other medical treatment and regimen
CPT/HCPCS: 36415; 71045; 80061; 81003; 82962; 83880; 84484; 93005; 93970; 94640; 99285; 99406; J0360; J1650; J1940; J1956; J2060; J2930; J7620

== ENCOUNTER 2019-05-09 10:33 | Emergency (ER) | payer MEDICARE, OTHER, MEDICAID ==
[~2019-05-09] VITALS: Ht 162.6 cm; Wt 105.0 kg
[2019-05-09] MEDS ORDERED: ONDANSETRON HCL 4MG/2ML INJ IV STA (12:04)
[2019-05-09] MEDS ORDERED: LORAZEPAM 1MG TABLET PO ONE (13:00)
[2019-05-09 14:16] LABS: BASOPHILS % 0.7 % (0.0-2.0); EOSINOPHILS % 2.7 % (0.0-5.0); HEMATOCRIT. 40.3 % (36.0-48.0); HEMOGLOBIN. 13.3 g/dL (12.0-16.0); LYMPHOCYTES % 27.6 % (20.0-50.0); MEAN CORPUSCULAR HEMOGLOBIN 26.5 pg (28.0-32.0); MEAN CORPUSCULAR VOLUME 80.6 fL (81.0-99.0); MEAN PLATELET VOLUME 8.9 fl (7.4-10.4); MONOCYTES % 9.2 % (2.0-8.0); NEUTROPHILS % 59.8 % (40.0-76.0); PLATELET 249 x1000/uL (130-400); RED CELL DISTRIBUTION WIDTH 15.4 % (11.6-14.6)
[2019-05-09 14:23] LABS: CHLORIDE 110 mEq/L (98-107)
[2019-05-09] MEDS ORDERED: LACTATED RINGERS 1,000 ML IV STA (16:01)
[2019-05-09 17:54] LABS: CLARITY URINE CLEAR (CLEAR); COLOR URINE YELLOW (YELLOW); KETONES URINE NEGATIVE (NEGATIVE); LEUKOCYTE ESTERASE URINE NEGATIVE (NEGATIVE); NITRITE URINE NEGATIVE (NEGATIVE); OCCULT BLOOD URINE NEGATIVE (NEGATIVE); PH URINE 5.5 (4.5-8.0); PROTEIN URINE TRACE (NEGATIVE); SPECIFIC GRAVITY URINE 1.021 (1.005-1.030)
[2019-05-10 03:30] VITALS: BP 130/60
== END 2019-05-10 10:58 | disposition home or self-care (01) ==
LOC: ER 10:59
DX: R05 Cough (principal); N17.9 Acute kidney failure, unspecified; J44.9 Chronic obstructive pulmonary disease, unspecified; I11.0 Hypertensive heart disease with heart failure; I50.9 Heart failure, unspecified; F14.10 Cocaine abuse, uncomplicated; Z59.0 Homelessness
CPT/HCPCS: 36415; 71045; 80053; 81003; 83880; 84484; 85025; 93005; 96360; 96361; 99284; J7120

== ENCOUNTER 2021-05-24 09:49 | Emergency (ER) | payer OTHER, MEDICAID ==
[~2021-05-24] VITALS: Ht 167.6 cm; Wt 102.0 kg
[~2021-05-24 09:49] MED LIST changes: -LISI-604 PO; +LISI20TA31 PO
[2021-05-24 10:28] LABS: BASOPHILS % 0.2 % (0.0-2.0); EOSINOPHILS % 1.3 % (0.0-5.0); HEMATOCRIT. 43.2 % (36.0-48.0); LYMPHOCYTES % 36.8 % (20.0-50.0); MEAN CORPUSCULAR HEMOGLOBIN 26.2 pg (28.0-32.0); MEAN CORPUSCULAR VOLUME 80.8 fL (81.0-99.0); MONOCYTES % 7.7 % (2.0-8.0); PLATELET 197 x1000/uL (130-400); RED BLOOD CELL COUNT 5.35 mill/uL (4.2-5.4); RED CELL DISTRIBUTION WIDTH 14.9 % (11.6-14.6)
[2021-05-24 10:29] LABS: CHLORIDE 112 mEq/L (98-107)
[2021-05-24 10:33] LABS: ETHANOL BLOOD < 10 mg/dL
[2021-05-24 11:55] LABS: CLARITY URINE CLOUDY (CLEAR); COLOR URINE YELLOW (YELLOW); KETONES URINE 1+ (NEGATIVE); LEUKOCYTE ESTERASE URINE NEGATIVE (NEGATIVE); NITRITE URINE NEGATIVE (NEGATIVE); OCCULT BLOOD URINE NEGATIVE (NEGATIVE); PH URINE 6.5 (4.5-8.0); PROTEIN URINE 2+ (NEGATIVE); SPECIFIC GRAVITY URINE 1.018 (1.005-1.030)
[2021-05-24 12:11] LABS: *AMPHETAMINES SCREEN URINE NEGATIVE (NEGATIVE); CANNABINOID URINE SCREEN NEGATIVE (NEGATIVE); PHENCYCLIDINE URINE SCREEN NEGATIVE (NEGATIVE)
[2021-05-24 12:12] LABS: *BARBITURATES SCREEN URINE NEGATIVE (NEGATIVE); *BENZODIAZEPINES SCREEN URINE NEGATIVE (NEGATIVE); *COCAINE SCREEN URINE PRESUMTIVE POSITIVE (NEGATIVE); METHADONE URINE SCREEN NEGATIVE (NEGATIVE); OPIATES URINE SCREEN NEGATIVE (NEGATIVE)
[2021-05-24] MEDS ORDERED: AMLODIPINE 10MG TABLET PO ONE (12:45)
[2021-05-24] MEDS ORDERED: HYDRALAZINE HCL 50MG TABLET PO ONE (14:00)
[2021-05-24 21:00] VITALS: BP 138/62
[2021-05-24] MEDS ORDERED: HYDRALAZINE HCL 50MG TABLET PO SCH (21:00)
== END 2021-05-24 21:20 | disposition home or self-care (01) ==
LOC: ER 09:49
DX: U07.1 COVID-19 (principal); R45.851 Suicidal ideations; I11.0 Hypertensive heart disease with heart failure; I50.9 Heart failure, unspecified; J44.9 Chronic obstructive pulmonary disease, unspecified; F41.9 Anxiety disorder, unspecified
CPT/HCPCS: 36415; 80053; 80305; 80320; 81003; 85025; 87426; 99285; G0480

== ENCOUNTER 2021-06-08 09:32 | Inpatient (IN) | payer OTHER, MEDICAID ==
[~2021-06-08] VITALS: Ht 154.9 cm; Wt 79.8 kg
[2021-06-08] MEDS ORDERED: NITROGLYCERIN OINT 1GM/INCH UDPKT TD ONE (09:45)
[2021-06-08] MEDS ORDERED: LORAZEPAM 2MG/ML CPJ IV ONE (09:45)
[2021-06-08] MEDS ORDERED: FUROSEMIDE 40MG/4ML VIAL IVP ONE (10:00)
[2021-06-08 10:15] LABS: BASOPHILS % 0.4 % (0.0-2.0); EOSINOPHILS % 2.2 % (0.0-5.0); HEMOGLOBIN. 13.3 g/dL (12.0-16.0); LYMPHOCYTES % 28.7 % (20.0-50.0); MEAN CORPUSCULAR HEMOGLOBIN 26.3 pg (28.0-32.0); MEAN CORPUSCULAR VOLUME 81.2 fL (81.0-99.0); MEAN PLATELET VOLUME 9.2 fl (7.4-10.4); MONOCYTES % 8.5 % (2.0-8.0); NEUTROPHILS % 60.2 % (40.0-76.0); PLATELET 264 x1000/uL (130-400); RED BLOOD CELL COUNT 5.05 mill/uL (4.2-5.4); RED CELL DISTRIBUTION WIDTH 15.2 % (11.6-14.6)
[2021-06-08 10:23] LABS: CHLORIDE 113 mEq/L (98-107)
[2021-06-08 10:28] LABS: ETHANOL BLOOD < 10 mg/dL
[2021-06-08] MEDS ORDERED: HYDRALAZINE 20MG/ML VIAL IV ONE (11:45)
[2021-06-08] MEDS ORDERED: ONDANSETRON HCL 4MG/2ML INJ IV PRN (16:15)
[2021-06-08] MEDS ORDERED: CLONIDINE 0.1MG TABLET PO PRN (16:15)
[2021-06-08] MEDS ORDERED: IPRATROPIUM/ALBUTEROL 0.5-3(2.5)MG/3ML NEB HHN PRN (16:15)
[2021-06-08] MEDS ORDERED: DIPHENHYDRAMINE 50MG/ML VIAL IV PRN (16:15)
[2021-06-08] MEDS ORDERED: GUAIFENESIN 200MG/10ML SUGAR FREE UDC PO PRN (16:15)
[2021-06-08] MEDS ORDERED: ACETAMINOPHEN 325MG TABLET PO PRN (16:15)
[2021-06-08] MEDS ORDERED: MAGNESIUM/ALUMINUM HYDROXIDE/SIMETHICONE 30ML UDC PO PRN (16:15)
[2021-06-08] MEDS ORDERED: DOCUSATE SODIUM 100MG CAPSULE PO PRN (16:15)
[2021-06-08] MEDS: AMLODIPINE 10MG TABLET PO SCH (16:45)
[2021-06-08] MEDS: ENOXAPARIN 30MG/0.3ML SYR SUBCUT SCH (19:30)
[2021-06-08 20:00] VITALS: BP 144/58
[2021-06-08 22:00] VITALS: BP 144/58
[2021-06-08] MEDS: LORAZEPAM 2MG/ML CPJ IV PRN (22:28)
[2021-06-08] MEDS: HYDRALAZINE HCL 10MG TABLET PO SCH (22:29)
[2021-06-08] MEDS: SODIUM CHLORIDE 0.9% INJ 3ML FLUSH IVF SCH (22:29)
[2021-06-09 04:00] VITALS: BP 162/104
[2021-06-09 05:56] VITALS: BP 140/68
[2021-06-09] MEDS: SODIUM CHLORIDE 0.9% INJ 3ML FLUSH IVF SCH ×3 (06:00→22:00)
[2021-06-09] MEDS: HYDRALAZINE HCL 10MG TABLET PO SCH ×3 (06:00→22:02)
[2021-06-09 08:00] VITALS: BP 158/76
[2021-06-09 08:01] LABS: BASOPHILS % 0.2 % (0.0-2.0); EOSINOPHILS % 2.6 % (0.0-5.0); HEMATOCRIT. 39.7 % (36.0-48.0); LYMPHOCYTES % 24.9 % (20.0-50.0); MEAN CORPUSCULAR HEMOGLOBIN 26.4 pg (28.0-32.0); MEAN CORPUSCULAR VOLUME 80.8 fL (81.0-99.0); MEAN PLATELET VOLUME 9.4 fl (7.4-10.4); MONOCYTES % 8.2 % (2.0-8.0); NEUTROPHILS % 64.1 % (40.0-76.0); PLATELET 267 x1000/uL (130-400); RED BLOOD CELL COUNT 4.91 mill/uL (4.2-5.4); RED CELL DISTRIBUTION WIDTH 15.2 % (11.6-14.6)
[2021-06-09 08:07] LABS: CHLORIDE 113 mEq/L (98-107)
[2021-06-09] MEDS: AMLODIPINE 10MG TABLET PO SCH (09:18)
[2021-06-09] MEDS: FUROSEMIDE 40MG/4ML VIAL IVP SCH (09:18)
[2021-06-09] MEDS: LORAZEPAM 2MG/ML CPJ IV PRN ×2 (09:36→18:49)
[2021-06-09 12:00] VITALS: BP 114/72
[2021-06-09 16:00] VITALS: BP 138/70
[2021-06-09] MEDS: ENOXAPARIN 30MG/0.3ML SYR SUBCUT SCH (17:00)
[2021-06-09 20:00] VITALS: BP 161/66
[2021-06-10] VITALS: BP 154/58
[2021-06-10 04:00] VITALS: BP 158/46
[2021-06-10] MEDS: HYDRALAZINE HCL 10MG TABLET PO SCH ×3 (05:48→21:31)
[2021-06-10] MEDS: SODIUM CHLORIDE 0.9% INJ 3ML FLUSH IVF SCH ×3 (05:48→21:32)
[2021-06-10 08:00] VITALS: BP 150/76
[2021-06-10 09:13] LABS: BASOPHILS % 0.5 % (0.0-2.0); EOSINOPHILS % 2.1 % (0.0-5.0); HEMATOCRIT. 38.3 % (36.0-48.0); HEMOGLOBIN. 12.6 g/dL (12.0-16.0); MEAN CORPUSCULAR HEMOGLOBIN 26.7 pg (28.0-32.0); MEAN PLATELET VOLUME 9.3 fl (7.4-10.4); MONOCYTES % 7.1 % (2.0-8.0); NEUTROPHILS % 58.3 % (40.0-76.0); PLATELET 266 x1000/uL (130-400); RED BLOOD CELL COUNT 4.73 mill/uL (4.2-5.4); RED CELL DISTRIBUTION WIDTH 15.4 % (11.6-14.6)
[2021-06-10] MEDS: AMLODIPINE 10MG TABLET PO SCH (10:00)
[2021-06-10] MEDS: FUROSEMIDE 40MG/4ML VIAL IVP SCH (10:00)
[2021-06-10] MEDS: LORAZEPAM 2MG/ML CPJ IV PRN ×2 (16:54→21:32)
[2021-06-10] MEDS: ENOXAPARIN 30MG/0.3ML SYR SUBCUT SCH (16:58)
[2021-06-10 20:00] VITALS: BP 128/74
[2021-06-11 04:00] VITALS: BP 146/95
[2021-06-11] MEDS: LORAZEPAM 2MG/ML CPJ IV PRN ×3 (04:57→14:13)
[2021-06-11] MEDS: SODIUM CHLORIDE 0.9% INJ 3ML FLUSH IVF SCH ×2 (05:01→14:12)
[2021-06-11] MEDS: HYDRALAZINE HCL 10MG TABLET PO SCH ×2 (05:02→14:13)
[2021-06-11 08:00] VITALS: BP 110/74
[2021-06-11] MEDS: AMLODIPINE 10MG TABLET PO SCH (09:00)
[2021-06-11] MEDS: FUROSEMIDE 40MG/4ML VIAL IVP SCH (09:00)
[2021-06-11 12:00] VITALS: BP 127/76
[2021-06-11 15:44] VITALS: BP 125/76
== END 2021-06-11 16:00 | disposition home or self-care (01) | DRG 291 ==
LOC: EDBD → ER 09:40 → 8WST 10:51 → ENRESERV 19:37 → UNDODISIN 06-09 10:58
PROVIDERS: ADMIT Internal Medicine; ATTEND Internal Medicine
DX: I11.0 Hypertensive heart disease with heart failure (principal); I50.33 Acute on chronic diastolic (congestive) heart failure; N17.9 Acute kidney failure, unspecified; K21.9 Gastro-esophageal reflux disease without esophagitis; E66.9 Obesity, unspecified; F32.A Depression, unspecified; F14.10 Cocaine abuse, uncomplicated; F17.210 Nicotine dependence, cigarettes, uncomplicated; Z20.822 Contact with and (suspected) exposure to COVID-19; I16.0 Hypertensive urgency; J44.9 Chronic obstructive pulmonary disease, unspecified; Z91.14 Patient's other noncompliance with medication regimen; Z71.6 Tobacco abuse counseling; Z79.899 Other long term (current) drug therapy; Z71.51 Drug abuse counseling and surveillance of drug abuser; Z68.33 Body mass index [BMI] 33.0-33.9, adult
CPT/HCPCS: 36415; 71045; 80048; 80053; 80320; 83880; 84443; 84484; 85025; 87426; 93005; 93306; 99291; J0360; J1650; J1940; J2060; G0480

== ENCOUNTER 2021-06-16 15:30 | Emergency (ER) | payer MEDICAID, OTHER ==
[~2021-06-16] VITALS: Ht 172.7 cm; Wt 85.0 kg
[2021-06-16 15:39] VITALS: BP 170/91
[2021-06-16] MEDS ORDERED: ASPIRIN 81MG TABLET PO ONE (17:00)
== END 2021-06-16 17:29 | disposition left against medical advice (07) ==
LOC: ER 15:30
DX: R06.02 Shortness of breath (principal); I11.0 Hypertensive heart disease with heart failure; I50.9 Heart failure, unspecified; J44.9 Chronic obstructive pulmonary disease, unspecified; J45.909 Unspecified asthma, uncomplicated; F32.9 Major depressive disorder, single episode, unspecified; F41.9 Anxiety disorder, unspecified
CPT/HCPCS: 93005; 99283